=== PATIENT | female | born 1980 | race Caucasian/White ===

== ENCOUNTER → 2021-07-23 | Outpatient (CLI) | payer OTHER ==
[~2021-07-23] MED LIST: BARIUM SULFATE 60% 355 ML SUSP PO ONE
--- NOTE | 2021-07-23 12:19 | RAD ---
EXAM: SMALL BOWEL FOLLOW-THROUGH. HISTORY: Abdominal pain. COMPARISON: None. FINDINGS: A technology adoption manager image was obtained. Barium contrast material was administered orally and followed i n its course through the stomach, small bowel and proximal colon with fluoroscopy and plain radiograp hs. The technology adoption manager image demonstrates a nonobstructive bowel gas pattern. There are no distended small bowel loops. No strictures are seen. The small bowel fold pattern is unr emarkable. Transit time was normal at 60 minutes (normal <2 hours.) IMPRESSION: 1. Unremarkable small bowel series. Electronically signed by: Scott Sanchez MD (07/23/2021 12:16 PM) [id number]
== END ==
LOC: RAD 08:16
PROVIDERS: ATTEND Internal Medicine Gastroenterology
DX: R10.30 Lower abdominal pain, unspecified (principal)
CPT/HCPCS: 74250